=== PATIENT | male | born 1940 | race Caucasian/White ===

== ENCOUNTER 2019-10-07 08:53 | Day surgery (SDC) | payer OTHER, SELFPAY ==
[2019-10-07 09:42] VITALS: BP 166/83; PULSE 82; RESP 16; TEMP 36.8; O2SAT 99; BMI 23.6
[2019-10-07] MEDS: PROPARACAINE 0.5% OPHTH SOL 2 DROPS EYE-OP (09:52)
[2019-10-07] MEDS: CATARACT EYE COMPOUND (10 DROPS/SYRINGE) 3 DROPS EYE-OP (09:53)
--- NOTE | 2019-10-07 10:47 | PM.PREOP ---
Pre-operative Note Interval Note History & Physical reviewed/Exam performed by Physician: No Changes to H&P: No
--- NOTE | 2019-10-07 10:47 | PM.OP.1 ---
Operative Date/Time/Diagnoses Pre-op diagnosis: Nuclear cataract right eye Procedure & Clinicians Procedure: Cataract Surgery Same procedure as scheduled: Yes Surgeon: Odilon Santiago Anesthesia Type: MAC +/- and Sedation Operative Notes Procedure in detail: Patient brought to the operating suite. Tetracaine drops placed in the right eye. Patient was prepped and draped in sterile manner. Wire lid speculum was placed in the eye. Betadine drops were placed on the eye. This was irrigated. Lidocaine jelly was placed on the eye. A paracentesis port was created with a side-port blade. 0.1 mL 1% preservative free lidocaine was injected into the anterior chamber. The anterior chamber was deepened with viscoelastic. 2.6 mm keratome was used to create a temporal clear corneal incision. Cystotome and Utrata forceps were used to create continuous tear capsulorrhexis. Balanced salt solution was used to hydro dissect the nucleus. The phacoemulsification handpiece was inserted and the nucleus was removed using the stop and chop technique. The nucleous was dense. The irrigation aspiration handpiece was inserted and the remaining cortex was removed. Anterior chamber was deepened with viscoelastic. An Qui[place]ones ZCB00 intraocular lens with a power of 21.0 was injected into the capsular bag. Irrigation aspiration handpiece was inserted and the remaining viscoelastic was removed. Incision was hydrated with balanced salt solution and found to be leak free with pressure with Weck-Darleen sponges. 0.1 mL Vigamox injected anterior chamber. 0.3 mL Kenalog 10 mg was injected subconjunctivally. Lid speculum was removed. The patient left the operating room in excellent condition. Complications: none Post-operative Condition: stable Disposition: same day surgery
[2019-10-07] MEDS: PHENYLEPHRINE/LIDOCAINE VIAL (OR) 0.2 ML EYE-OP (11:04)
[2019-10-07] MEDS: CHONDROIDTIN/SOD HYALURONATE 1.05 ML SYRINGE INTRAOCULA (11:05)
[2019-10-07] MEDS: LIDOCAINE JELLY 2% 5 ML 1 APPLIC TOP (11:05)
[2019-10-07] MEDS: TRIAMCINOLONE 50 MG/5 ML VIAL INJ (11:05)
[2019-10-07] MEDS: BALANCED SALT IRRIG SOLN NO.2 500 ML, EPINEPHrine 1 MG IRR (11:05)
[2019-10-07] MEDS: MOXIFLOXACIN INJ 5 MG/ML VIAL EYE-OP (11:05)
[2019-10-07] MEDS: TETRACAINE 0.5% OPHTH DROPS 4 ML 2 DROPS EYE-OP (11:05)
[2019-10-07 11:33] VITALS: BP 135/88; PULSE 56; RESP 16; TEMP 36.7; O2SAT 95
--- NOTE | 2019-10-07 11:38 | SUR.PHASEII ---
Patient's heart rate 48-61, patient reported heart rate of 50s [address] normal[address] Dr[address] Rodrigues notified, ok for patient to discharge per MD. Patient able to stand without feeling dizzy.
== END 2019-10-07 11:37 | disposition home or self-care (01) ==
PROVIDERS: Family Provider Student in an Organized Health Care Education/Training Program; PCP Student in an Organized Health Care Education/Training Program; Visit Provider Ophthalmology
PROC: (CPT 66984; principal; 2019-10-07 10:45)
DX: H25.11 Age-related nuclear cataract, right eye (principal); I10 Essential (primary) hypertension
CPT/HCPCS: 66984; J0171; J2250; J3010; J3301

== ENCOUNTER 2019-11-18 08:43 | Day surgery (SDC) | payer MEDICARE, SELFPAY ==
[2019-11-18] MEDS: PROPARACAINE 0.5% OPHTH SOL 2 DROPS EYE-OP (09:22)
[2019-11-18 09:23] VITALS: BP 161/76; PULSE 56; RESP 18; TEMP 36.4; O2SAT 97
[2019-11-18] MEDS: CATARACT EYE COMPOUND (10 DROPS/SYRINGE) 3 DROPS EYE-OP (09:26)
[2019-11-18 09:27] VITALS: BMI 23.8
--- NOTE | 2019-11-18 09:57 | PM.PREOP ---
Pre-operative Note Interval Note History & Physical reviewed/Exam performed by Physician: No Changes to H&P: No
--- NOTE | 2019-11-18 09:57 | PM.OP.1 ---
Operative Date/Time/Diagnoses Pre-op diagnosis: Nuclear Cataract Left eye Post-op diagnosis: same Procedure & Clinicians Surgeon: Odilon Santiago Anesthesia Type: MAC +/- and Sedation Operative Notes Procedure in detail: Patient brought to the operating suite. Tetracaine drops placed in the left eye. Patient was prepped and draped in sterile manner. Wire lid speculum was placed in the eye. Betadine drops were placed on the eye. This was irrigated. Lidocaine jelly was placed on the eye. A paracentesis port was created with a side-port blade. 0.1 mL 1% preservative free lidocaine was injected into the anterior chamber. The anterior chamber was deepened with viscoelastic. 2.6 mm keratome was used to create a temporal clear corneal incision. Cystotome and Utrata forceps were used to create continuous tear capsulorrhexis. Balanced salt solution was used to hydro dissect the nucleus. The phacoemulsification handpiece was inserted and the nucleus was removed using the stop and chop technique. The irrigation aspiration handpiece was inserted and the remaining cortex was removed. Anterior chamber was deepened with viscoelastic. An Qui[place]ones ZCB00 intraocular lens with a power of 19.5 was injected into the capsular bag. Irrigation aspiration handpiece was inserted and the remaining viscoelastic was removed. Incision was hydrated with balanced salt solution and found to be leak free with pressure with Weck-Darleen sponges. 0.1 mL Vigamox injected anterior chamber. 0.3 mL Kenalog 10 mg was injected subconjunctivally. Lid speculum was removed. The patient left the operating room in excellent condition. Complications: none Post-operative Condition: stable Disposition: same day surgery
[2019-11-18] MEDS: LIDOCAINE JELLY 2% 5 ML 1 APPLIC TOP (10:10)
[2019-11-18] MEDS: CHONDROIDTIN/SOD HYALURONATE 1.05 ML SYRINGE INTRAOCULA (10:10)
[2019-11-18] MEDS: PHENYLEPHRINE/LIDOCAINE VIAL (OR) 0.2 ML EYE-OP (10:11)
[2019-11-18] MEDS: MOXIFLOXACIN INJ 5 MG/ML VIAL EYE-OP (10:11)
[2019-11-18] MEDS: TETRACAINE 0.5% OPHTH DROPS 4 ML 2 DROPS EYE-OP (10:12)
[2019-11-18] MEDS: TRIAMCINOLONE 50 MG/5 ML VIAL INJ (10:13)
[2019-11-18] MEDS: BALANCED SALT IRRIG SOLN NO.2 500 ML, EPINEPHrine 1 MG IRR (10:13)
[2019-11-18 11:00] VITALS: BP 144/79; PULSE 53; RESP 16; TEMP 36.5; O2SAT 97
== END 2019-11-18 11:00 | disposition home or self-care (01) ==
PROVIDERS: PCP Student in an Organized Health Care Education/Training Program; Visit Provider Ophthalmology
PROC: (CPT 66984; principal; 2019-11-18 10:45)
DX: H25.12 Age-related nuclear cataract, left eye (principal); I10 Essential (primary) hypertension
CPT/HCPCS: 66984; J0171; J2250; J3010; J3301

== ENCOUNTER 2020-01-13 07:45 | Day surgery (SDC) | payer MEDICARE, SELFPAY ==
[2020-01-13 09:13] VITALS: BP 168/73; PULSE 54; RESP 16; TEMP 36.7; O2SAT 100; BMI 23.1
--- NOTE | 2020-01-13 09:33 | PM.PREOP ---
Pre-operative Note Interval Note History & Physical reviewed/Exam performed by Physician: Yes Changes to H&P: No
--- NOTE | 2020-01-13 09:33 | PM.OP.1 ---
Operative Date/Time/Diagnoses Pre-op diagnosis: Nuclear cataract right eye Procedure & Clinicians Procedure: Cataract Surgery Same procedure as scheduled: Yes Surgeon: Odilon Santiago Anesthesia Type: MAC +/- and Sedation Operative Notes Procedure in detail: Patient brought to the operating suite. Tetracaine drops placed in the right eye. Patient was prepped and draped in sterile manner. Wire lid speculum was placed in the eye. Betadine drops were placed on the eye. This was irrigated. Lidocaine jelly was placed on the eye. A paracentesis port was created with a side-port blade. 0.1 mL 1% preservative free lidocaine was injected into the anterior chamber. The anterior chamber was deepened with viscoelastic. 2.6 mm keratome was used to create a temporal clear corneal incision. Cystotome and Utrata forceps were used to create continuous tear capsulorrhexis. Balanced salt solution was used to hydro dissect the nucleus. The phacoemulsification handpiece was inserted and the nucleus was removed using the stop and chop technique. The irrigation aspiration handpiece was inserted and the remaining cortex was removed. Anterior chamber was deepened with viscoelastic. An Quiñones ZCB00 intraocular lens with a power of [???] was injected into the capsular bag. Irrigation aspiration handpiece was inserted and the remaining viscoelastic was removed. Incision was hydrated with balanced salt solution and found to be leak free with pressure with Weck-Darleen sponges. 0.1 mL Vigamox injected anterior chamber. 0.3 mL Kenalog 10 mg was injected subconjunctivally. Lid speculum was removed. The patient left the operating room in excellent condition. Complications: none Post-operative Condition: stable Disposition: same day surgery
--- NOTE | 2020-01-13 09:36 | PM.OP.1 ---
Operative Date/Time/Diagnoses Date of procedure: 01/13/20 Pre-op diagnosis: Retained lens fragment right eye Post-op diagnosis: same Procedure & Clinicians Procedure: Retained lens fragment removal right eye Same procedure as scheduled: Yes Surgeon: Odilon Santiago Anesthesia Type: MAC +/- Operative Notes Procedure in detail: The patient was brought to the operating suite. Tetracaine drops were placed in the right eye. The patient was prepped and draped in sterile manor. A wire lid speculum was used to open the lids. Betadine drops were placed on the eye. This was irrigated. Lidocaine jelly was placed on the eye. The Paracentesis incision was opened with side port blade. The anterior chamber was filled with viscoelastic. The Main incision was opened with keratome. The irrigation and aspiration handpiece was used to remove the lens fragment and viscoelastic. The incision was hydrated with BSS and found to be leak free. 0.1ml moxifloxacin was injected into the anterior chamber. 0.2ml of Kenalog 10 was injected subconjunctivally. The lid speculum was removed. A shield was placed over the eye. The patient left in excellent condition. Post-operative Condition: stable Disposition: same day surgery
[2020-01-13] MEDS: MOXIFLOXACIN INJ 5 MG/ML VIAL EYE-OP (09:50)
[2020-01-13] MEDS: TRIAMCINOLONE 50 MG/5 ML VIAL INJ (09:51)
[2020-01-13] MEDS: TETRACAINE 0.5% OPHTH DROPS 4 ML 2 DROPS EYE-OP (09:51)
[2020-01-13] MEDS: BALANCED SALT IRRIG SOLN NO.2 500 ML, EPINEPHrine 1 MG IRR (09:51)
[2020-01-13] MEDS: LIDOCAINE JELLY 2% 5 ML 1 APPLIC TOP (09:51)
[2020-01-13] MEDS: CHONDROIDTIN/SOD HYALURONATE 1.05 ML SYRINGE INTRAOCULA (09:52)
[2020-01-13 10:07] VITALS: BP 165/79; PULSE 54; RESP 16; TEMP 36.8; O2SAT 96
--- NOTE | 2020-01-13 10:36 | SUR.PHASEII ---
went to get new drops, pt dressed and ready to go with no complaints.
== END 2020-01-13 10:41 | disposition home or self-care (01) ==
PROVIDERS: PCP Student in an Organized Health Care Education/Training Program; Referring Provider Ophthalmology; Visit Provider Ophthalmology
PROC: (CPT 65235; principal; 2020-01-13 09:45)
DX: H59.021 Cataract (lens) fragments in eye following cataract surgery, right eye (principal)
CPT/HCPCS: 65235; J0171; J2250; J3010; J3301